=== PATIENT | male | born 1985 ===

== ENCOUNTER 2018-10-11 01:43 | Emergency (ER) | payer SELFPAY ==
[2018-10-11 02:09] VITALS: O2SAT 98
--- NOTE | 2018-10-11 03:36 | C.PDOC ---
History Of Present Illness 33 year old male c/o painful itching rash to his bilateral hands worse on the left hand. Patient reports having the symptoms 2 months ago and has been sen at [facility], more recently 2 weeks ago. Patient was given steroid cream. Patient reports now his left hand is pealing and he is afraid for an infection. Patient denies fever, chills, nausea, vomit, weakness, numbness. Time Seen by Provider: 10/11/18 03:08 Chief Complaint (Nursing): Abnormal Skin Integrity History Per: Patient History/Exam Limitations: no limitations Onset/Duration Of Symptoms: Days Current Symptoms Are (Timing): Still Present Location Of Injury: Right: Hand, Left: Hand Quality Of Symptoms: Painful, Itching Recent travel outside of the [place]: No Additional History Per: Patient Past Medical History Reviewed: Historical Data, Nursing Documentation, Vital Signs Vital Signs: Last Vital Signs Temp 98.1 F 10/11/18 02:02 Pulse 69 10/11/18 02:02 Resp 22 10/11/18 02:02 BP 144/91 H 10/11/18 02:02 Pulse Ox 98 10/11/18 02:02 - Medical History PMH: No Chronic Diseases Surgical History: No Surg Hx Family History: States: Unknown Family Hx - Social History Hx Alcohol Use: No Hx Substance Use: No - Immunization History Hx Tetanus Toxoid Vaccination: No Hx Influenza Vaccination: No Hx Pneumococcal Vaccination: No Review Of Systems Constitutional: Negative for: Fever, Chills Respiratory: Negative for: Shortness of Breath Gastrointestinal: Negative for: Nausea, Vomiting Musculoskeletal: Positive for: Hand Pain Skin: Positive for: Rash Neurological: Negative for: Weakness, Numbness, Headache, Dizziness Physical Exam - Physical Exam Appears: Non-toxic, No Acute Distress Skin: Warm, Dry, Rash (dry scally patchy erythematous rash to abdomen, bilateral hands, left hand worse over 3rd finger woth excoriations) Head: Atraumatic, Normacephalic Eye(s): bilateral: Normal Inspection Neck: Normal ROM, Supple Chest: Symmetrical Cardiovascular: Rhythm Regular Respiratory: Normal Breath Sounds, No Rales, No Rhonchi, No Wheezing Gastrointestinal/Abdominal: Soft, No Tenderness, No Guarding, No Rebound Extremity: Normal ROM, No Tenderness, Capillary Refill (< 2 seconds), No Swelling Pulses: Left Radial: Normal, Right Radial: Normal Neurological/Psych: Oriented x3, Normal Speech, Normal Cognition, Normal Motor, Normal Sensation Gait: Steady ED Course And Treatment O2 Sat by Pulse Oximetry: 98 (On RA) Pulse Ox Interpretation: Normal Progress Note: Plan: - bendaryl 50 mg PO. - keflex 500 mg PO. On reassessment, patient is resting comfortably, and is in no acute distress. Patient was instructed to follow up with physician/clinic in 1-2 days for further evaluation. Return precautions were discussed and understood by pt Disposition Counseled Patient/Family Regarding: Diagnosis, Need For Followup, Rx Given - Disposition Referrals: [facility] [Outside] Disposition: HOME/ ROUTINE Disposition Time: 03:29 Condition: STABLE Additional Instructions: Please avoid scratching Keep hands clean away Apply oint as directed Take medications as directed Follow up in clinic Prescriptions: Cephalexin [cephalexin] 500 mg PO QID #28 cap Mupirocin 2% Ointment [Bactroban Ointment] 1 applic TP BID #30 g Instructions: Eczema (Atopic Dermatitis) (DC) Forms: [employer] (Bengali) - Clinical Impression Clinical Impression: Dermatitis - 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 - Scribe Statement The provider has reviewed the documentation as recorded by the Scribe Benjie Hector All medical record entries made by the Scribe were at my direction and personally dictated by me. I have reviewed the chart and agree that the record accurately reflects my personal performance of the history, physical exam, medical decision making, and the department course for this patient. I have also personally directed, reviewed, and agree with the discharge instructions and disposition.
[2018-10-11 04:05] VITALS: BP 136/82; PULSE 72; RESP 18; TEMP 98.3
== END 2018-10-11 03:59 | disposition home or self-care (01) ==
LOC: C.ER 01:43
DX: L30.9 Dermatitis, unspecified (principal)